=== PATIENT | male | born 1975 | race Caucasian/White ===

== ENCOUNTER → 2019-10-11 | Outpatient (CLI) | payer OTHER ==
--- NOTE | 2019-10-11 12:22 | Diagnostic Imaging Report ---
Clinical indications: Patient with pain in the right knee with no known injury. Pain for 3 days. EXAM: X-ray of the right knee, 3 views. COMPARISON: None. FINDINGS: There is no acute fracture or dislocation. There is severely hypertrophic bony changes anteriorly at the tibial tuberosity region which may be from chronic traumatic changes. There is thickening of the pre-tibial soft tissue. There is mildly hypertrophic patellar spurs at the quadriceps attachment seen. There is no knee effusion. Remainder of the right knee is unremarkable. IMPRESSION: 1.: There is no acute fracture or dislocation. 2: There are degenerative and chronic posttraumatic changes of the right knee, as described above. Dictated by: Dictated on workstation # [id number]
== END ==
LOC: RAD FS 11:45
PROVIDERS: ATTEND Nurse Practitioner Family
DX: M17.31 Unilateral post-traumatic osteoarthritis, right knee (principal)
CPT/HCPCS: 73562

== ENCOUNTER → 2020-02-14 | Outpatient (CLI) | payer OTHER ==
[~2020-02-14] MED LIST: CATHETER FLUSH 10 ML SYR IV PRN
--- NOTE | 2020-02-14 14:17 | Diagnostic Imaging Report ---
HEPATOBILIARY SCAN DATE: February 14, 2020. INDICATION: 44-year-old male, right upper quadrant abdominal pain. PROCEDURE: 5.38 mCi of Tc-99m Choletec was administered intravenously and serial anterior planar images over the liver and upper abdomen were obtained. FINDINGS: There is homogenous activity throughout the liver with good clearance of background activity. This indicates good hepatocellular function. Biliary tree activity is seen at 5 minutes. The gallbladder is seen at 10 minutes. There is no enterogastric reflux. The biliary tree is patent. There is no evidence of acute cholecystitis. CCK was administered. Gallbladder ejection fraction was calculated to be 42%. IMPRESSION: Normal hepatobiliary scan. No evidence of acute or chronic cholecystitis. Dictated by: Dictated on workstation # [id number]
== END ==
LOC: CARD 09:48
PROVIDERS: ATTEND Nurse Practitioner Family
DX: R10.11 Right upper quadrant pain (principal)
CPT/HCPCS: 78227; A9537

== ENCOUNTER 2022-07-29 19:05 | Emergency (ER) | payer OTHER ==
[~2022-07-29] VITALS: Ht 177.8 cm; Wt 106.8 kg
--- NOTE | 2022-07-29 19:14 | ED Headache ---
General Stated Complaint: ELEV BP; GERMAN; RT FACIAL TINGLING History of Present Illness Date Seen by Provider: Jul 29, 2022 Time Seen by Provider: 19:05 Initial Comments 46-year-old male presents with a right-sided headache that started around 4 PM. Patient reports he was at work and pushing a heavy cart when it hit. The he also developed a little bit of facial tingling. When he went home he checked his blood pressure and it was elevated. Patient reports he has a history of migraines but has not had one in a long time. He reports that the tingling is only on the right side. He has no weakness or focal deficits on his face or body. Denies any recent illness. Allergies and Home Medications Allergies Coded Allergies: No Allergy Information Available (Unverified , 02/14/20) Patient Home Medication List Home Medication List Reviewed: Yes Review of Systems Review of Systems Constitutional: No chills; dizziness; No fever Eyes: No Symptoms Reported Ears, Nose, Mouth, Throat: no symptoms reported Respiratory: no symptoms reported Cardiovascular: no symptoms reported Gastrointestinal: no symptoms reported Genitourinary: no symptoms reported Musculoskeletal: no symptoms reported Psychiatric/Neurological: Headache, Tingling Physical Exam Vital Signs Vital Signs - First Documented 07/29/22 19:05 Temp 36.8 Pulse 107 Resp 16 B/P (MAP) 193/88 (123) Pulse Ox 98 O2 Delivery Room Air Capillary Refill : Height, Weight, BMI Height: '" Weight: lbs. oz. kg; BMI Method: General Appearance: WD/WN, no apparent distress HEENT: PERRL/EOMI, normal ENT inspection Neck: full range of motion, supple Cardiovascular: normal peripheral pulses, regular rate, rhythm Respiratory: lungs clear, normal breath sounds Gastrointestinal: non tender, soft Extremities: normal range of motion, non-tender, normal inspection Psychiatric: alert, oriented x 3 Crainal Nerves: normal hearing, PERRL; No abnormal speech, No facial asymmetry, No facial droop, No facial weakness Coordination/Gait: normal gait Motor/Sensory: no motor deficit, no pronator drift Skin: normal color, warm/dry Progress/Results/Core Measures Results/Orders Lab Results Laboratory Tests Test 07/29/22 19:12 Range/Units White Blood Count 5.8 4.3-11.0 10^3/uL Red Blood Count 4.72 4.30-5.52 10^6/uL Hemoglobin 14.9 13.3-17.7 g/dL Hematocrit 41 40-54 % Mean Corpuscular Volume 88 80-99 fL Mean Corpuscular Hemoglobin 32 25-34 pg Mean Corpuscular Hemoglobin Concent 36 32-36 g/dL Red Cell Distribution Width 13.0 10.0-14.5 % Platelet Count 189 130-400 10^3/uL Mean Platelet Volume 9.0 9.0-12.2 fL Immature Granulocyte % (Auto) 0 % Neutrophils (%) (Auto) 71 42-75 % Lymphocytes (%) (Auto) 17 12-44 % Monocytes (%) (Auto) 8 0-12 % Eosinophils (%) (Auto) 2 0-10 % Basophils (%) (Auto) 1 0-10 % Neutrophils # (Auto) 4.1 1.8-7.8 10^3/uL Lymphocytes # (Auto) 1.0 1.0-4.0 10^3/uL Monocytes # (Auto) 0.5 0.0-1.0 10^3/uL Eosinophils # (Auto) 0.1 0.0-0.3 10^3/uL Basophils # (Auto) 0.1 0.0-0.1 10^3/uL Immature Granulocyte # (Auto) 0.0 0.0-0.1 10^3/uL Prothrombin Time 12.2 12.2-14.7 SEC INR Comment 0.9 0.8-1.4 Activated Partial Thromboplast Time 25 24-35 SEC Sodium Level 140 135-145 MMOL/L Potassium Level 4.2 3.6-5.0 MMOL/L Chloride Level 104 98-107 MMOL/L Carbon Dioxide Level 27 21-32 MMOL/L Anion Gap 9 5-14 MMOL/L Blood Urea Nitrogen 7 7-18 MG/DL Creatinine 1.02 0.60-1.30 MG/DL Estimat Glomerular Filtration Rate 91 BUN/Creatinine Ratio 7 Glucose Level 73 70-105 MG/DL Calcium Level 9.4 8.5-10.1 MG/DL Corrected Calcium 9.0 8.5-10.1 MG/DL Magnesium Level 1.8 1.6-2.4 MG/DL Total Bilirubin 0.5 0.1-1.0 MG/DL Aspartate Amino Transf (AST/SGOT) 13 5-34 U/L Alanine Aminotransferase (ALT/SGPT) 23 0-55 U/L Alkaline Phosphatase 111 40-136 U/L C-Reactive Protein < 0.30 <0.50 MG/DL Total Protein 6.8 6.4-8.2 GM/DL Albumin 4.5 3.2-4.5 GM/DL My Orders Orders - PEDRAZAANDRES L DO Ct Head Wo-R/O Stroke (07/29/22 19:08) Ed Iv/Invasive Line Start (07/29/22 19:08) Cbc With Automated Diff (07/29/22 19:08) Comprehensive Metabolic Panel (07/29/22 19:08) Magnesium (07/29/22 19:08) Protime With Inr (07/29/22 19:08) Partial Thromboplastin Time (07/29/22 19:08) Crp Fs (07/29/22 19:08) Ketorolac Injection (Toradol Injection) (07/29/22 19:56) Metoclopramide Injection (Reglan Injecti (07/29/22 19:56) Diphenhydramine Injection (Benadryl Inje (07/29/22 19:56) Vital Signs/I&O 07/29/22 19:05 Temp 36.8 Pulse 107 Resp 16 B/P (MAP) 193/88 (123) Pulse Ox 98 O2 Delivery Room Air Progress Progress Note : Progress Note Patient's labs and CT were reviewed. Patient had a negative CT for any acute abnormality along with negative labs. Patient with a history of headaches and m igraines. Patient likely had a migrainous type headache with an aura with the facial tingling. Patient was treated with Toradol Reglan and Benadryl. Patient's symptoms had significantly improved following treatment. Patient will be discharged home. He should follow-up with a primary care provider if symptoms have not resolved in the next day or so. Return to the ER as needed. Diagnostic Imaging Diagonstic Imaging: CT Plain Films/CT/US/NM/MRI: head Comments CT HEAD WO-R/O STROKE PROCEDURE: CT head wo r/o stroke. TECHNIQUE: Multiple contiguous axial images were obtained through the brain without the use of intravenous contrast. Auto Exposure Controls were utilized during the CT exam to meet ALARA standards for radiation dose reduction. INDICATION: Headaches. Dizziness. Right-sided head pain. History of hypertension. EXAMINATion: CT brain stroke protocol 07/29/2022. FINDINGS: There is no hemorrhage or infarct. No mass, mass effect or midline shift. No hydrocephalus. Calvarium intact. Paranasal sinuses and mastoid air cells unremarkable for acute abnormality. IMPRESSION: 1. No acute intracranial process. Departure Impression Primary Impression: Migraine Qualified Codes: G43.109 - Migraine with aura, not intractable, without status migrainosus Additional Impression: Elevated blood pressure reading Disposition: HOME, SELF-CARE Condition: Stable Departure-Patient Inst. Referrals: SALLY ENGLE APRN (PCP) Primary Care Physician [facility] (Family) Primary Care Physician Patient Instructions: Migraines (DC) Add. Discharge Instructions: Get plenty of rest. You may use Tylenol tonight if headaches are completely resolved. Please follow-up with your primary care provider if symptoms become recurrent or not resolving over the next day or return to the ER with any other concerns. Please follow-up with your primary care provider once you are headache resolves to recheck your blood pressure and have it monitored to ensure that it comes down appropriately after headache resolves ANDRES PEDRAZA DO Jul 29, 2022 19:14
[2022-07-29 19:17] LABS: BASOPHILS # (AUTO) 0.1 10^3/uL (0.0-0.1); BASOPHILS % (AUTO) 1 % (0-10); EOSINOPHILS # (AUTO) 0.1 10^3/uL (0.0-0.3); EOSINOPHILS % (AUTO) 2 % (0-10); HEMATOCRIT 41 % (40-54); HEMOGLOBIN 14.9 g/dL (13.3-17.7); LYMPHOCYTES % (AUTO) 17 % (12-44); MEAN CORPUSCULAR HEMOGLOBIN 32 pg (25-34); MEAN CORPUSCULAR HGB CONC 36 g/dL (32-36); MEAN CORPUSCULAR VOLUME 88 fL (80-99); MONOCYTES # (AUTO) 0.5 10^3/uL (0.0-1.0); MONOCYTES % (AUTO) 8 % (0-12); NEUTROPHILS # (AUTO) 4.1 10^3/uL (1.8-7.8); NEUTROPHILS % (AUTO) 71 % (42-75); PLATELET COUNT 189 10^3/uL (130-400); WHITE BLOOD COUNT 5.8 10^3/uL (4.3-11.0)
[2022-07-29 19:34] LABS: INR 0.9 (0.8-1.4); PROTHROMBIN TIME PATIENT 12.2 SEC (12.2-14.7)
[2022-07-29 19:35] LABS: POTASSIUM 4.2 MMOL/L (3.6-5.0); SODIUM 140 MMOL/L (135-145)
[2022-07-29 19:36] LABS: ALANINE AMINOTRANSFERASE 23 U/L (0-55); ALBUMIN 4.5 GM/DL (3.2-4.5); ALKALINE PHOSPHATASE 111 U/L (40-136); BILIRUBIN,TOTAL 0.5 MG/DL (0.1-1.0); BUN/CREATININE RATIO 7; CALCIUM 9.4 MG/DL (8.5-10.1); CARBON DIOXIDE 27 MMOL/L (21-32); CHLORIDE 104 MMOL/L (98-107); CREATININE SERUM 1.02 MG/DL (0.60-1.30); GFR ESTIMATED 91; GLUCOSE 73 MG/DL (70-105); MAGNESIUM 1.8 MG/DL (1.6-2.4); TOTAL PROTEIN 6.8 GM/DL (6.4-8.2)
--- NOTE | 2022-07-29 19:51 | Diagnostic Imaging Report ---
PROCEDURE: CT head wo r/o stroke. TECHNIQUE: Multiple contiguous axial images were obtained through the brain without the use of intravenous contrast. Auto Exposure Controls were utilized during the CT exam to meet ALARA standards for radiation dose reduction. INDICATION: Headaches. Dizziness. Right-sided head pain. History of hypertension. EXAMINATion: CT brain stroke protocol 07/29/2022. FINDINGS: There is no hemorrhage or infarct. No mass, mass effect or midline shift. No hydrocephalus. Calvarium intact. Paranasal sinuses and mastoid air cells unremarkable for acute abnormality. IMPRESSION: 1. No acute intracranial process. Dictated by: Dictated on workstation # [id number]
[2022-07-29] MEDS ORDERED: diphenhydrAMINE 50 MG/ML INJ (BENADRYL) IV STA (19:56)
[2022-07-29] MEDS ORDERED: KETOROLAC 30 MG/ML VIAL IVP STA (19:56)
[2022-07-29] MEDS ORDERED: METOCLOPRAMIDE INJ 10 MG/2 ML (REGLAN) IVP STA (19:56)
[2022-07-29 20:31] VITALS: BP 171/86
== END 2022-07-29 20:32 | disposition home or self-care (01) ==
LOC: EDUNIT# 19:05 → ER FS 19:06
DX: G43.909 Migraine, unspecified, not intractable, without status migrainosus (principal); R03.0 Elevated blood-pressure reading, without diagnosis of hypertension; Z28.310 Unvaccinated for COVID-19
CPT/HCPCS: 36415; 70450; 80053; 83735; 85025; 85610; 85730; 86141